=== PATIENT | female | born 1960 | race Caucasian/White ===

== ENCOUNTER 2016-11-19 14:15 | Emergency (ER) | payer BC ==
[~2016-11-19 14:15] MED LIST: ADULT ASPIRIN81 MG PO; AUGMENTIN500 MG/TAB PO; CALCIUM 600 +1 EACH PO; CALCIUM500 MG; CELEBREX200 MG PO; CELEBREX50 MG PO; CLEOCIN HCL300 MG PO; CORTISPORIN OTI10 ML OT; FIBER1 GM PO; FISH OIL 1,2001 EAC5 PO; LEVAQUIN750 MG; MOBIC15 M1 PO; MOTRIN800 MG PO; MUCINEX1200 MG PO; MULTIVITAMIN1 TAB; MULTIVITAMIN1 TAB PO; NORCO 5/325 TAB1 TAB PO; PREDNISONE; PREDNISONE10 M1 PO; PRILOSEC20 MG PO; PROAIR HFA8.5 GM IH; ZITHROMAX250 M1 PO
[2016-11-19] MEDS ORDERED: RESTASIS0.4 ML/EA OP (14:30)
[2016-11-19] MEDS ORDERED: [UNRECOGNIZED DRUG - REMARK] (14:31)
[2016-11-19] MEDS ORDERED: ABX FOR BRONCHITIS (14:31)
[2016-11-19] MEDS ORDERED: IBUPROFEN600 M1 PO (16:04)
[2016-11-19] MEDS ORDERED: CYCLOBENZAPRINE5 M1 PO (16:04)
== END 2016-11-19 16:24 ==
LOC: EDMED 14:15
DX: S29.011A Strain of muscle and tendon of front wall of thorax, initial encounter (principal); K21.9 Gastro-esophageal reflux disease without esophagitis; Z79.899 Other long term (current) drug therapy; W18.39XA Other fall on same level, initial encounter; Y92.019 Unspecified place in single-family (private) house as the place of occurrence of the external cause